=== PATIENT | female | born 1980 | race Caucasian/White ===

== ENCOUNTER → 2024-07-25 12:50 | Outpatient (REF) | payer OTHER, SELFPAY | LOC: HWWDC 12:50 | PROVIDERS: ATTENDING PHYSICIAN Nurse Practitioner Family | DX: Z12.31 Encounter for screening mammogram for malignant neoplasm of breast (principal) | CPT/HCPCS: 77063; 77067 ==

== ENCOUNTER → 2025-10-12 13:11 | Outpatient (REF) | payer BC, SELFPAY | LOC: HWRAD 13:11 | PROVIDERS: ATTENDING PHYSICIAN Student in an Organized Health Care Education/Training Program | DX: N92.0 Excessive and frequent menstruation with regular cycle (principal) | CPT/HCPCS: 76830; 76856 ==